=== PATIENT | male | born 1955 | race African-American/Black ===

== ENCOUNTER 2019-12-04 16:19 | Inpatient (IN) ==
[2019-12-04 17:45] LABS: Hematocrit 33.1 % (37.5-50.1); Hemoglobin 11.1 g/dL (12.9-16.9); Mean Corpuscular HGB Conc 33.5 g/dL (31.6-35.5); Mean Corpuscular Hemoglobin 29.9 pg (28.0-33.3); Mean Corpuscular Volume 89.2 fL (83.0-100.0); Platelet Count 105 K/mcL (140-400); Red Blood Count 3.71 M/mcL (4.19-5.50); Red Cell Distribution Width 15.9 % (11.5-14.5); White Blood Count 4.7 K/mcL (4.3-11.1)
[2019-12-04 17:49] LABS: INR 1.4; Prothrombin Time 15.5 Seconds (9.4-12.1)
[2019-12-04 18:07] LABS: Alanine Aminotransferase 214 Units/L (7-52); Albumin 2.5 g/dL (3.5-5.7); Albumin/Globulin Ratio 0.4 (1.1-2.2); Alkaline Phosphatase 192 Units/L (34-104); Aspartate Amino Transferase 334 Units/L (13-39); BUN/Creatinine Ratio 25 (6-26); Bilirubin,Direct 0.5 mg/dL (0.0-0.2); Bilirubin,Indirect 0.2 mg/dL (0.0-1.0); Bilirubin,Total 0.7 mg/dL (0.3-1.0); Blood Urea Nitrogen 26 mg/dL (8-23); Calcium 8.1 mg/dL (8.6-10.3); Carbon Dioxide 24 mEq/L (23-29); Chloride 111 mEq/L (98-107); Globulin 6.2 g/dL (2.4-3.5); Glucose 77 mg/dL (70-105); Lipase 110 Units/L (11-82); Osmolality,Calculated 290 (280-300); Potassium 3.9 mEq/L (3.5-5.1); Sodium 138 mEq/L (136-145); Total Protein 8.7 g/dL (6.4-8.9); eGFR For African Americans > 60 (> 60); eGFR For Non-African Americans > 60 (> 60)
[2019-12-04 19:30] LABS: Bilirubin,Urine Negative (Negative); Blood,Urine Negative (Negative); Clarity,Urine Clear (Clear); Color,Urine Yellow (Yellow); Glucose,Urine (UA) Normal (Normal); Ketones,Urine Negative (Negative); Leukocyte Esterase,Urine Small (Negative); Nitrite,Urine Negative (Negative); Protein,Urine Negative (Neg-Trace); Specific Gravity,Urine 1.029 (1.010-1.025); Urobilinogen,Urine Normal (Normal)
[2019-12-04 19:32] LABS: Bacteria,Urine None Seen per hpf (None-Few); Hyaline Casts,Urine None Seen per lpf (None-Few); RBC,Urine 0-3 per hpf (0-3); Squamous Epithelial Cell,Urine Many per lpf (None-Few); WBC,Urine 0-3 per hpf (0-3)
[2019-12-04 19:59] LABS: Troponin I < 0.03 ng/mL (< 0.04)
[2019-12-05 01:41] LABS: Mean Corpuscular Hemoglobin 29.4 pg (28.0-33.3)
[2019-12-05] MEDS ORDERED: Naloxone 0.4 MG/ML INJ IVP PRN (01:41)
[2019-12-05 01:43] LABS: Hematocrit 29.1 % (37.5-50.1); Hemoglobin 9.6 g/dL (12.9-16.9); Immature Platelets 4.5 % (1.1-6.1); Red Blood Count 3.27 M/mcL (4.19-5.50); Red Cell Distribution Width 15.8 % (11.5-14.5); White Blood Count 4.5 K/mcL (4.3-11.1)
[2019-12-05 01:45] LABS: INR 1.5; Prothrombin Time 16.9 Seconds (9.4-12.1)
[2019-12-05 02:02] LABS: BUN/Creatinine Ratio 26 (6-26); Blood Urea Nitrogen 25 mg/dL (8-23); Calcium 7.8 mg/dL (8.6-10.3); Carbon Dioxide 21 mEq/L (23-29); Chloride 113 mEq/L (98-107); Glucose 62 mg/dL (70-105); Osmolality,Calculated 290 (280-300); Potassium 3.7 mEq/L (3.5-5.1); Sodium 139 mEq/L (136-145); eGFR For African Americans > 60 (> 60); eGFR For Non-African Americans > 60 (> 60)
[2019-12-05] MEDS ORDERED: D5% in Water 1,000 ML IVC PRN (02:06)
[2019-12-05] MEDS ORDERED: Dextrose Gel 15 GM/37.5 ML TUBE PO PRN ×2 (02:06)
[2019-12-05] MEDS ORDERED: *HR* Dextrose 50 % in Water (Syg) 50 ML SYRINGE IVP PRN (02:06)
[2019-12-05 06:32] LABS: Total Protein 7.5 g/dL (6.4-8.9)
[2019-12-05 08:15] LABS: Estimated Average Glucose 120 mg/dl
[2019-12-05 11:19] LABS: INR 1.4
[2019-12-05 11:33] LABS: % Iron Saturation 22 % (20-55); Iron 59 mcg/dL (65-175); Transferrin 193 mg/dL (203-362)
[2019-12-05] MEDS: Lactulose Oral Soln 20 GM/30 ML UDC PO SCH ×3 (11:44→21:01)
[2019-12-05] MEDS: Furosemide 40 MG TABLET PO SCH (11:44)
[2019-12-05 11:51] LABS: Ferritin 127 ng/mL (20-250)
[2019-12-06] MEDS ORDERED: *HR* LORazepam 2 MG/ML VIAL IVP PRN ×3 (08:35)
[2019-12-06 09:46] LABS: Basophils % 0.7 %; Eosinophils # 0.1 K/mcL (0.0-0.6); Hematocrit 33.4 % (37.5-50.1); Hemoglobin 10.9 g/dL (12.9-16.9); Immature Granulocytes % 0.4 % (0-4); Lymphocytes # 1.4 K/mcL (0.6-4.6); Lymphocytes % 32.1 %; Mean Corpuscular HGB Conc 32.6 g/dL (31.6-35.5); Mean Corpuscular Volume 88.8 fL (83.0-100.0); Monocytes # 0.5 K/mcL (0.0-1.3); Monocytes % 10.7 %; Neutrophils # 2.4 K/mcL (1.6-8.9); Platelet Count 101 K/mcL (140-400); Red Blood Count 3.76 M/mcL (4.19-5.50); Red Cell Distribution Width 15.9 % (11.5-14.5); Segmented Neutrophils % 54.1 %; White Blood Count 4.5 K/mcL (4.3-11.1)
[2019-12-06] MEDS: Lactulose Oral Soln 20 GM/30 ML UDC PO SCH ×3 (09:54→21:37)
[2019-12-06] MEDS: Albumin 25% 25gram/100mL 25 GM/100 ML IV.SOLN IVPB SCH ×2 (09:54→21:37)
[2019-12-06] MEDS: Vitamin B Complex/Vit C/Vit E 1 EACH TABLET PO SCH (09:54)
[2019-12-06] MEDS: Thiamine (B-1) 100 MG TABLET PO SCH (09:54)
[2019-12-06] MEDS: Folic Acid 1 MG TABLET PO SCH (09:54)
[2019-12-06] MEDS: Furosemide 40 MG TABLET PO SCH (09:55)
[2019-12-06 10:07] LABS: Alanine Aminotransferase 256 Units/L (7-52); Albumin 2.4 g/dL (3.5-5.7); Albumin/Globulin Ratio 0.4 (1.1-2.2); Alkaline Phosphatase 167 Units/L (34-104); Aspartate Amino Transferase 432 Units/L (13-39); BUN/Creatinine Ratio 22 (6-26); Bilirubin,Direct 0.5 mg/dL (0.0-0.2); Bilirubin,Indirect 0.5 mg/dL (0.0-1.0); Blood Urea Nitrogen 25 mg/dL (8-23); Calcium 7.9 mg/dL (8.6-10.3); Carbon Dioxide 22 mEq/L (23-29); Chloride 112 mEq/L (98-107); Globulin 5.8 g/dL (2.4-3.5); Glucose 81 mg/dL (70-105); Osmolality,Calculated 291 (280-300); Potassium 3.9 mEq/L (3.5-5.1); Sodium 139 mEq/L (136-145); Total Protein 8.2 g/dL (6.4-8.9); eGFR For African Americans > 60 (> 60); eGFR For Non-African Americans > 60 (> 60)
[2019-12-06 11:05] LABS: Hepatitis B Surface Antigen Nonreactive (Nonreactive)
[2019-12-06 11:34] LABS: HIV-1&2 Antibody & p24 Ag Nonreactive (Nonreactive)
[2019-12-06 11:35] LABS: Hepatitis B Core IgM Nonreactive (Nonreactive)
[2019-12-06 11:36] LABS: Hepatitis A Antibody IgM Nonreactive (Nonreactive)
[2019-12-06 14:40] LABS: Hepatitis C Virus Antibody Reactive (Nonreactive)
[2019-12-07 04:23] LABS: Alanine Aminotransferase 207 Units/L (7-52); Albumin 2.4 g/dL (3.5-5.7); Albumin/Globulin Ratio 0.5 (1.1-2.2); Alkaline Phosphatase 126 Units/L (34-104); Aspartate Amino Transferase 329 Units/L (13-39); BUN/Creatinine Ratio 20 (6-26); Bilirubin,Direct 0.3 mg/dL (0.0-0.2); Bilirubin,Indirect 0.6 mg/dL (0.0-1.0); Bilirubin,Total 0.9 mg/dL (0.3-1.0); Blood Urea Nitrogen 23 mg/dL (8-23); Calcium 7.6 mg/dL (8.6-10.3); Carbon Dioxide 21 mEq/L (23-29); Chloride 112 mEq/L (98-107); Globulin 4.5 g/dL (2.4-3.5); Glucose 105 mg/dL (70-105); Osmolality,Calculated 292 (280-300); Potassium 3.8 mEq/L (3.5-5.1); Sodium 139 mEq/L (136-145); Total Protein 6.9 g/dL (6.4-8.9); eGFR For African Americans > 60 (> 60); eGFR For Non-African Americans > 60 (> 60)
[2019-12-07 05:45] LABS: Basophils % 0.7 %; Hemoglobin 8.8 g/dL (12.9-16.9); Immature Granulocytes % 0.2 % (0-4); Mean Corpuscular Volume 88.4 fL (83.0-100.0)
[2019-12-07 05:47] LABS: Eosinophils # 0.1 K/mcL (0.0-0.6); Eosinophils % 2.7 %; Hematocrit 25.9 % (37.5-50.1); Lymphocytes # 1.3 K/mcL (0.6-4.6); Lymphocytes % 31.4 %; Monocytes # 0.6 K/mcL (0.0-1.3); Monocytes % 14.5 %; Neutrophils # 2.1 K/mcL (1.6-8.9); Red Blood Count 2.93 M/mcL (4.19-5.50); Red Cell Distribution Width 15.8 % (11.5-14.5); Segmented Neutrophils % 50.5 %; White Blood Count 4.1 K/mcL (4.3-11.1)
[2019-12-07 05:50] LABS: Platelet Count 82 K/mcL (140-400)
[2019-12-07] MEDS: Lactulose Oral Soln 20 GM/30 ML UDC PO SCH ×5 (07:42→20:15)
[2019-12-07] MEDS: Furosemide 40 MG TABLET PO SCH (07:43)
[2019-12-07] MEDS: Vitamin B Complex/Vit C/Vit E 1 EACH TABLET PO SCH (07:43)
[2019-12-07] MEDS: Folic Acid 1 MG TABLET PO SCH (07:43)
[2019-12-07] MEDS: Albumin 25% 25gram/100mL 25 GM/100 ML IV.SOLN IVPB SCH ×2 (07:43→20:14)
[2019-12-07] MEDS: Thiamine (B-1) 100 MG TABLET PO SCH (07:43)
[2019-12-07 10:01] LABS: ANA IgG by ELISA DETECTED (None Detected)
[2019-12-07] MEDS: Furosemide 40 MG/4 ML VIAL IVP SCH (10:40)
[2019-12-07 12:08] LABS: Hemoglobin 10.2 g/dL (12.9-16.9)
[2019-12-07 20:12] LABS: Hematocrit 29.4 % (37.5-50.1)
[2019-12-07 20:14] LABS: Hemoglobin 9.6 g/dL (12.9-16.9)
[2019-12-08 06:55] LABS: Serine Protease-3 Antibody 7 AU/mL (0-19)
[2019-12-08 07:06] LABS: Hemoglobin 9.6 g/dL (12.9-16.9); Mean Platelet Volume 11.3 fL (9.4-12.4); Red Cell Distribution Width 15.9 % (11.5-14.5)
[2019-12-08 07:08] LABS: Basophils # 0.1 K/mcL (0.0-0.2); Basophils % 1.2 %; Eosinophils # 0.1 K/mcL (0.0-0.6); Eosinophils % 3.1 %; Hematocrit 29.2 % (37.5-50.1); Immature Granulocytes % 0.2 % (0-4); Immature Platelets 4.7 % (1.1-6.1); Lymphocytes # 1.4 K/mcL (0.6-4.6); Lymphocytes % 33.4 %; Mean Corpuscular HGB Conc 32.9 g/dL (31.6-35.5); Mean Corpuscular Hemoglobin 29.3 pg (28.0-33.3); Monocytes # 0.5 K/mcL (0.0-1.3); Monocytes % 11.3 %; Neutrophils # 2.2 K/mcL (1.6-8.9); Red Blood Count 3.28 M/mcL (4.19-5.50); Segmented Neutrophils % 50.8 %; White Blood Count 4.3 K/mcL (4.3-11.1)
[2019-12-08 07:09] LABS: Platelet Count 82 K/mcL (140-400)
[2019-12-08 07:24] LABS: Alanine Aminotransferase 196 Units/L (7-52); Albumin 2.8 g/dL (3.5-5.7); Albumin/Globulin Ratio 0.6 (1.1-2.2); Alkaline Phosphatase 130 Units/L (34-104); Aspartate Amino Transferase 286 Units/L (13-39); BUN/Creatinine Ratio 20 (6-26); Bilirubin,Direct 0.4 mg/dL (0.0-0.2); Bilirubin,Indirect 0.7 mg/dL (0.0-1.0); Bilirubin,Total 1.1 mg/dL (0.3-1.0); Blood Urea Nitrogen 21 mg/dL (8-23); Carbon Dioxide 21 mEq/L (23-29); Chloride 110 mEq/L (98-107); Globulin 4.7 g/dL (2.4-3.5); Glucose 172 mg/dL (70-105); Osmolality,Calculated 291 (280-300); Potassium 3.6 mEq/L (3.5-5.1); Sodium 137 mEq/L (136-145); Total Protein 7.5 g/dL (6.4-8.9); eGFR For African Americans > 60 (> 60); eGFR For Non-African Americans > 60 (> 60)
[2019-12-08] MEDS: Albumin 25% 25gram/100mL 25 GM/100 ML IV.SOLN IVPB SCH (08:19)
[2019-12-08] MEDS: Furosemide 40 MG/4 ML VIAL IVP SCH (08:23)
[2019-12-08] MEDS: Vitamin B Complex/Vit C/Vit E 1 EACH TABLET PO SCH (08:26)
[2019-12-08] MEDS: Thiamine (B-1) 100 MG TABLET PO SCH (08:26)
[2019-12-08] MEDS: Lactulose Oral Soln 20 GM/30 ML UDC PO SCH ×2 (08:26→13:50)
[2019-12-08] MEDS: Folic Acid 1 MG TABLET PO SCH (08:26)
[2019-12-08 11:37] LABS: HCV Quant Interpretation DETECTED (Not Detected)
[2019-12-08 13:51] VITALS: BP 151/81
[2019-12-08 15:48] LABS: A1A SZ Specimen WHOLE BLOOD; Alpha-1-Antitrypsin S Allele NEGATIVE; Alpha-1-Antitrypsin Z Allele NEGATIVE
[2019-12-08 17:04] LABS: Alpha-1-Antitrypsin 212 mg/dL (90-200)
[2019-12-09 20:59] LABS: ANA HEp-2 IgG IFA DETECTED (<1:80); Anti Nuclear Ab Pattern SPECKLED
== END 2019-12-08 15:18 | disposition home or self-care (01) | DRG 897 ==
LOC: EMEROOARM 16:19 → 3ANU 16:19 → SUATTDRO 20:21 → 3ANU 21:00
PROVIDERS: ADMIT Family Medicine; ATTEND Internal Medicine

== ENCOUNTER 2020-06-15 00:38 | Observation (INO) ==
[2020-06-15] MEDS ORDERED: Acetaminophen 325 MG TABLET PO PRN (04:34)
[2020-06-15] MEDS ORDERED: Naloxone 0.4 MG/ML INJ IVP PRN (04:34)
[2020-06-15] MEDS ORDERED: Ondansetron 4 MG/2 ML VIAL IVP PRN (04:34)
[2020-06-15] MEDS ORDERED: *HR* Dextrose 50 % in Water (Vial) 50 ML VIAL IVP PRN (04:34)
[2020-06-15] MEDS ORDERED: Dextrose Gel 15 GM/37.5 ML TUBE PO PRN ×2 (04:34)
[2020-06-15] MEDS ORDERED: D5% in Water 1,000 ML IVC PRN (04:34)
[2020-06-15] MEDS ORDERED: *HR* LORazepam 2 MG/ML VIAL IVP PRN ×3 (04:39)
[2020-06-15] MEDS: *HR* Heparin 5,000 UNIT/ML VIAL SQ SCH ×2 (05:22→16:08)
[2020-06-15 05:31] LABS: Hemoglobin 10.1 g/dL (12.9-16.9); Red Cell Distribution Width 16.9 % (11.5-14.5)
[2020-06-15 05:33] LABS: Basophils # 0.1 K/mcL (0.0-0.2); Basophils % 1.2 %; Eosinophils # 0.1 K/mcL (0.0-0.6); Eosinophils % 1.2 %; Hematocrit 29.6 % (37.5-50.1); Immature Granulocytes % 0.5 % (0-4); Immature Platelets 6.1 % (1.1-6.1); Lymphocytes % 31.5 %; Mean Corpuscular HGB Conc 34.1 g/dL (31.6-35.5); Mean Corpuscular Hemoglobin 30.8 pg (28.0-33.3); Mean Corpuscular Volume 90.2 fL (83.0-100.0); Mean Platelet Volume 11.2 fL (9.4-12.4); Monocytes # 0.5 K/mcL (0.0-1.3); Monocytes % 11.3 %; Neutrophils # 2.3 K/mcL (1.6-8.9); Red Blood Count 3.28 M/mcL (4.19-5.50); Segmented Neutrophils % 54.3 %; White Blood Count 4.3 K/mcL (4.3-11.1)
[2020-06-15 05:36] LABS: Lymphocytes # 1.4 K/mcL (0.6-4.6); Platelet Count 95 K/mcL (140-400)
[2020-06-15 05:50] LABS: BUN/Creatinine Ratio 16 (6-26); Blood Urea Nitrogen 20 mg/dL (8-23); Calcium 8.1 mg/dL (8.6-10.3); Carbon Dioxide 16 mEq/L (23-29); Chloride 116 mEq/L (98-107); Glucose 80 mg/dL (70-105); Osmolality,Calculated 292 (280-300); Potassium 3.5 mEq/L (3.5-5.1); Sodium 140 mEq/L (136-145); eGFR For African Americans > 60 (> 60); eGFR For Non-African Americans 57 (> 60)
[2020-06-15 05:51] LABS: Albumin 2.5 g/dL (3.5-5.7); Albumin/Globulin Ratio 0.5 (1.1-2.2); Bilirubin,Direct 0.9 mg/dL (0.0-0.2); Bilirubin,Indirect 1.2 mg/dL (0.0-1.0); Bilirubin,Total 2.1 mg/dL (0.3-1.0); Globulin 5.4 g/dL (2.4-3.5); Magnesium 1.6 mg/dL (1.6-2.6); Total Protein 7.9 g/dL (6.4-8.9)
[2020-06-15 06:08] LABS: INR 1.8; Prothrombin Time 20.3 Seconds (9.4-12.1)
[2020-06-15 06:10] LABS: Activated Partial Thrombo Time 38.6 Seconds (26.0-36.0)
[2020-06-15] MEDS: Insulin LISPRO 300 UNITS/3 ML VIAL SQ SCH ×3 (08:06→16:11)
[2020-06-15] MEDS: Lactulose Oral Soln 20 GM/30 ML UDC PO SCH ×4 (08:16→19:57)
[2020-06-16] MEDS: *HR* Heparin 5,000 UNIT/ML VIAL SQ SCH ×2 (05:28→16:50)
[2020-06-16 05:39] LABS: Alanine Aminotransferase 470 Units/L (7-52); Albumin 2.5 g/dL (3.5-5.7); Albumin/Globulin Ratio 0.5 (1.1-2.2); Alkaline Phosphatase 119 Units/L (34-104); Aspartate Amino Transferase 310 Units/L (13-39); BUN/Creatinine Ratio 16 (6-26); Bilirubin,Total 2.2 mg/dL (0.3-1.0); Blood Urea Nitrogen 21 mg/dL (8-23); Calcium 8.2 mg/dL (8.6-10.3); Carbon Dioxide 16 mEq/L (23-29); Chloride 116 mEq/L (98-107); Globulin 5.2 g/dL (2.4-3.5); Glucose 75 mg/dL (70-105); Magnesium 1.6 mg/dL (1.6-2.6); Osmolality,Calculated 290 (280-300); Phosphorous 3.4 mg/dL (2.7-4.5); Potassium 3.9 mEq/L (3.5-5.1); Sodium 139 mEq/L (136-145); Total Protein 7.7 g/dL (6.4-8.9); eGFR For African Americans > 60 (> 60); eGFR For Non-African Americans 57 (> 60)
[2020-06-16] MEDS: Insulin LISPRO 300 UNITS/3 ML VIAL SQ SCH ×3 (08:17→16:32)
[2020-06-16] MEDS: Lactulose Oral Soln 20 GM/30 ML UDC PO SCH ×4 (09:56→19:53)
[2020-06-17] MEDS: *HR* Heparin 5,000 UNIT/ML VIAL SQ SCH (05:20)
[2020-06-17 05:42] LABS: Alanine Aminotransferase 441 Units/L (7-52); Albumin 2.5 g/dL (3.5-5.7); Albumin/Globulin Ratio 0.5 (1.1-2.2); Alkaline Phosphatase 136 Units/L (34-104); Aspartate Amino Transferase 276 Units/L (13-39); BUN/Creatinine Ratio 15 (6-26); Bilirubin,Total 1.6 mg/dL (0.3-1.0); Blood Urea Nitrogen 20 mg/dL (8-23); Carbon Dioxide 17 mEq/L (23-29); Chloride 112 mEq/L (98-107); Globulin 5.4 g/dL (2.4-3.5); Glucose 105 mg/dL (70-105); Magnesium 1.6 mg/dL (1.6-2.6); Osmolality,Calculated 285 (280-300); Phosphorous 2.9 mg/dL (2.7-4.5); Sodium 136 mEq/L (136-145); Total Protein 7.9 g/dL (6.4-8.9); eGFR For African Americans > 60 (> 60); eGFR For Non-African Americans 53 (> 60)
[2020-06-17 05:56] LABS: Estimated Average Glucose 114 mg/dl
[2020-06-17] MEDS: Insulin LISPRO 300 UNITS/3 ML VIAL SQ SCH ×2 (07:24→12:06)
[2020-06-17] MEDS: Lactulose Oral Soln 20 GM/30 ML UDC PO SCH (09:23)
[2020-06-17 10:03] VITALS: BP 109/69
== END 2020-06-17 12:56 | disposition home or self-care (01) ==
LOC: 3BNU → SUATTDRO 04:00
PROVIDERS: ADMIT Student in an Organized Health Care Education/Training Program; ATTEND Internal Medicine